=== PATIENT | male | born 1955 | race Caucasian/White ===

== ENCOUNTER 2016-11-19 12:08 | Emergency (ER) | payer SELFPAY ==
[2016-11-19 12:13] VITALS: BP 151/90; PULSE 97; RESP 16; TEMP 97.9; O2SAT 98
--- NOTE | 2016-11-19 12:32 | C.PDOC ---
History Of Present Illness 61 yr old male presents to the ER with complaints of new onset of lower tooth pain for 1 day. Patient states the tooth has always been loose but now has pain. Denies any trauma, fever, swelling to the area or throat swelling. NEW ONSET LOWER TOOTH PAIN X 1 DAY. PS TOOTH HAS ALWAYS BEEN LOOSE BUT NOW PAIN. NO TRAUMA. NO SWELL EXAM POOR DENTITION, MULT MISSING TEETH. +LOOSE L LOWER CENTRAL INCISOR. NO ABSCESS. +LOCAL TEND Time Seen by Provider: 11/19/16 12:29 Chief Complaint (Nursing): Dental Pain History Per: Patient History/Exam Limitations: no limitations Onset/Duration Of Symptoms: Days (1) Past Medical History Reviewed: Historical Data, Nursing Documentation, Vital Signs Vital Signs: Last Vital Signs Temp 97.9 F 11/19/16 12:11 Pulse 97 H 11/19/16 12:11 Resp 16 11/19/16 12:11 BP 151/90 H 11/19/16 12:11 Pulse Ox 98 11/19/16 12:50 Family History: States: No Known Family Hx - Social History Hx Alcohol Use: No Hx Substance Use: No - Immunization History Hx Influenza Vaccination: No Review Of Systems Except As Marked, All Systems Reviewed And Found Negative. Constitutional: Negative for: Fever ENT: Positive for: Other ((+) Right lower tooth pain ). Negative for: Throat Swelling Physical Exam - Physical Exam Appears: Non-toxic, No Acute Distress Skin: Warm, Dry, No Rash Head: Atraumatic, Normacephalic Teeth: Loose (Left lower central incisor. Local tenderness. No abscess ), Other (Poor dentition. Multiple missing teeth. ) Throat: Normal, No Erythema, No Exudate, No Drooling Neurological/Psych: Oriented x3, Normal Speech, Normal Motor ED Course And Treatment O2 Sat by Pulse Oximetry: 98 (RA ) Pulse Ox Interpretation: Normal Disposition Counseled Patient/Family Regarding: Diagnosis, Need For Followup, Rx Given - Disposition Referrals: YOUR,DENTIST [Other] Disposition: HOME/ ROUTINE Disposition Time: 12:46 Condition: GOOD Prescriptions: Acetaminophen/Codeine [Tylenol/Codeine 300 MG/30 MG] 2 tab PO Q6H #20 tab Ibuprofen [Motrin] 600 mg PO Q6 #30 tab Penicillin VK [Pen-Vee K] 2 tab PO BID #28 tab Instructions: Dental Caries (ED) - Clinical Impression Clinical Impression: Dental caries, Dentalgia - Scribe Statement The provider has reviewed the documentation as recorded by the [facility] See Provider Attestation: All medical record entries made by the [facility] were at my direction and personally dictated by me. I have reviewed the chart and agree that the record accurately reflects my personal performance of the history, physical exam, medical decision making, and the department course for this patient. I have also personally directed, reviewed, and agree with the discharge instructions and disposition.
== END 2016-11-19 12:50 | disposition home or self-care (01) ==
LOC: C.ER 12:08
DX: K02.9 Dental caries, unspecified (principal)